=== PATIENT | female | born 1955 | race Caucasian/White ===

== ENCOUNTER 2016-08-09 10:29 | Outpatient (CLI) | payer MEDICARE ==
[2016-08-09 11:21] LABS: Albumin 3.6 g/dL (3.9-5); BUN/Creatinine Ratio 12.56; Calcium 11.2 mg/dL (8.4-10.2); Chloride 103.5 mmol/L (98-107); Phosphorous 4.7 mg/dL (2.5-4.5); Potassium 4.4 mmol/L (3.6-5.0)
== END 2016-08-09 10:30 | disposition home or self-care (01) ==
LOC: LAB 10:29
PROVIDERS: ATTEND Internal Medicine Nephrology
DX: I12.9 Hypertensive chronic kidney disease with stage 1 through stage 4 chronic kidney disease, or unspecified chronic kidney disease (principal); N18.4 Chronic kidney disease, stage 4 (severe); R80.9 Proteinuria, unspecified; D64.9 Anemia, unspecified; E78.00 Pure hypercholesterolemia, unspecified; N25.81 Secondary hyperparathyroidism of renal origin
CPT/HCPCS: 36415; 80048; 82040; 83970; 84100

== ENCOUNTER 2016-10-17 12:32 | Outpatient (CLI) | payer MEDICARE ==
[2016-10-17 13:03] LABS: Hematocrit 32.5 % (30.3-42.9); Hemoglobin 10.3 gm/dl (10.1-14.3); Mean Corpuscular HGB Conc 32 % (30-34); Mean Corpuscular Hemoglobin 30 pg (28-32); Mean Corpuscular Volume 94 fl (79-97); Platelet Count 187 K/mm3 (140-440); Red Blood Count 3.44 M/mm3 (3.65-5.03); Red Cell Distribution Width 17.2 % (13.2-15.2); White Blood Count 6.3 K/mm3 (4.5-11.0)
[2016-10-17 13:23] LABS: BUN/Creatinine Ratio 14.25; Phosphorous 4.6 mg/dL (2.5-4.5); Potassium 3.9 mmol/L (3.6-5.0)
== END 2016-10-17 12:33 | disposition home or self-care (01) ==
LOC: LAB 12:32
DX: I12.9 Hypertensive chronic kidney disease with stage 1 through stage 4 chronic kidney disease, or unspecified chronic kidney disease (principal); N18.4 Chronic kidney disease, stage 4 (severe); D64.9 Anemia, unspecified; M10.9 Gout, unspecified; R94.4 Abnormal results of kidney function studies; N25.81 Secondary hyperparathyroidism of renal origin
CPT/HCPCS: 36415; 80048; 82040; 82043; 83970; 84100; 85027

== ENCOUNTER 2016-12-15 13:20 | Outpatient (CLI) | payer MEDICARE ==
[2016-12-15 13:57] LABS: Albumin 3.9 g/dL (3.9-5); Albumin/Globulin Ratio 1.1 %; BUN/Creatinine Ratio 12.5; Bilirubin,Total 0.3 mg/dL (0.1-1.2); Calcium 9.3 mg/dL (8.4-10.2); Chloride 103.8 mmol/L (98-107); Potassium 4.8 mmol/L (3.6-5.0); Total Protein 7.4 g/dL (6.3-8.2)
[2016-12-15 15:19] LABS: Hematocrit 32.6 % (30.3-42.9); Hemoglobin 10.1 gm/dl (10.1-14.3); Mean Corpuscular HGB Conc 31 % (30-34); Mean Corpuscular Hemoglobin 30 pg (28-32); Mean Corpuscular Volume 97 fl (79-97); Platelet Count 165 K/mm3 (140-440); Red Blood Count 3.38 M/mm3 (3.65-5.03); Red Cell Distribution Width 15.2 % (13.2-15.2); White Blood Count 6.9 K/mm3 (4.5-11.0)
== END 2016-12-15 13:21 | disposition home or self-care (01) ==
LOC: LAB 13:20
DX: I12.0 Hypertensive chronic kidney disease with stage 5 chronic kidney disease or end stage renal disease (principal); N18.5 Chronic kidney disease, stage 5; D64.9 Anemia, unspecified; E83.52 Hypercalcemia; M10.9 Gout, unspecified; E79.0 Hyperuricemia without signs of inflammatory arthritis and tophaceous disease; N25.81 Secondary hyperparathyroidism of renal origin
CPT/HCPCS: 36415; 80053; 83970; 85027